=== PATIENT | female | born 1955 | race Caucasian/White ===

== ENCOUNTER 2017-08-30 06:55 | Emergency (ER) | payer OTHER ==
[2017-08-30] MEDS ORDERED: Sodium Chloride 0.9% 1,000 ML IV ONE (07:15)
[2017-08-30] MEDS ORDERED: Sodium Chloride 0.9% 10 ML Syringe FLUSH PRN (07:15)
--- NOTE | 2017-08-30 07:51 | CR ---
Chest: Portable view of the chest was obtained. Comparison: No prior chest x-ray. Heart size and mediastinum are normal. Lungs are clear. Bony structures are grossly intact. Slight scoliosis is incidentally noted. Impression: 1. Nothing acute is seen. Diagnostic code #2
--- NOTE | 2017-08-30 07:58 | EDM.PDOC ---
ED HPI GENERAL MEDICAL PROBLEM - General Chief Complaint: Syncope Stated Complaint: [facility] Time Seen by Provider: 08/30/17 07:14 Source of Information: Reports: Patient History Limitations: Reports: No Limitations - History of Present Illness INITIAL COMMENTS - FREE TEXT/NARRATIVE: 62 y/o F with syncope. Was out walking this morning per usual routine. Stopped to play with a neighbor's dog. Was standing near a fence when she suddenly felt very lightheaded/dizzy. Told her she felt lightheaded and needed to leave. He states she then passed out. He helped her to the ground. Thinks she was out for about a minute. Was mildly confused when she came to. Continued to breath during the episode. No shaking/seizure activity. Continued to feel dizzy when she woke up briefly, but feels fine now. EMS blood glucose 140. EMS vital signs normal at the scene. States she's recently had nasal congestion/URI for 3- 4 days. No fever. No vomiting/diarrhea. No chest pain/SOB. No abdominal pain. No lower extremity pain/swelling. Doesn't take systemic estrogens. No recent immobilization/travel. No family hx of PE/DVT. States a cousin recently had a valve replacement and was told it could be a familial problem, unsure of additional details. She does have a history of prior passing out episodes, including once about 2 years ago when she was sick with flu, and another episode prior to that, and additional episodes when she was much younger. Had what sounds like a holter monitor at one point which was normal. - Related Data Allergies Allergy/AdvReac Type Severity Reaction Status Date / Time No Known Drug Allergies Allergy Other Verified 08/30/17 07:58 Home Meds: Home Meds Aspirin 81 mg PO DAILY 08/30/17 [History] Calcium Carbonate/Vitamin D3 [Calcium 600-Vit D3 800 Tablet] 1 each PO BID 08/30 [History] Docusate Sodium [Stool Softener] 100 mg PO BID 08/30/17 [History] Flaxseed Oil [Flaxseed] 1,000 mg PO DAILY 08/30/17 [History] Levothyroxine 25 mcg PO DAILY 08/30/17 [History] Multivitamin [Multivitamins] 1 each PO DAILY 08/30/17 [History] Niacin 100 mg PO DAILY 08/30/17 [History] Stanley-3/DHA/Epa/Fish Oil [Fish Oil 1,000 mg Softgel] 1 each PO TID 08/30/17 [ History] Social & Family History - Tobacco Use Smoking Status *Q: Never Smoker Second Hand Smoke Exposure: Yes - Caffeine Use Caffeine Use: Reports: None - Recreational Drug Use Recreational Drug Use: No ED ROS GENERAL - Review of Systems Review Of Systems: See Below Constitutional: Denies: Fever HEENT: Reports: Sinus Problem Respiratory: Denies: Shortness of Breath Cardiovascular: Denies: Chest Pain Endocrine: Reports: No Symptoms GI/Abdominal: Denies: Abdominal Pain : Reports: No Symptoms Musculoskeletal: Reports: No Symptoms Skin: Reports: No Symptoms Neurological: Reports: Dizziness Psychiatric: Reports: No Symptoms Hematologic/Lymphatic: Reports: No Symptoms Immunologic: Reports: No Symptoms - Physical Exam Exam: See Below Exam Limited By: No Limitations General Appearance: Alert, WD/WN, No Apparent Distress Eye Exam: Bilateral Eye: Normal Inspection, PERRL Ears: Normal External Exam Nose: Normal Inspection Throat/Mouth: Normal Inspection, Normal Oropharynx, Normal Voice, No Airway Compromise Head Exam: Atraumatic, Normocephalic Neck: Normal Inspection, Supple, Non-Tender, Full Range of Motion Respiratory/Chest: No Respiratory Distress, Lungs Clear, Normal Breath Sounds, No Accessory Muscle Use, Chest Non-Tender Cardiovascular: Normal Peripheral Pulses, Regular Rate, Rhythm, No Edema, No Murmur GI/Abdominal: Soft, Non-Tender, No Distention. No: Rebound Neuro Exam (Abbreviated): Alert, Oriented, CN II-XII Intact, Normal Cognition, No Motor/Sensory Deficits Back Exam: Normal Inspection Extremities: Normal Inspection, No Pedal Edema. No: Leg Pain Psychiatric: Normal Affect, Normal Mood Skin Exam: Warm, Dry, Intact, Normal Color, No Rash Course - Vital Signs Last Recorded V/S: Last Vital Signs Temp 36.4 C 08/30/17 07:02 Pulse 76 08/30/17 07:02 Resp 20 08/30/17 07:02 BP 117/73 08/30/17 07:02 Pulse Ox 100 08/30/17 07:02 Orthostatic Blood Pressure [ 100/53 Standing] Orthostatic Blood Pressure [ 101/52 Sitting] Orthostatic Blood Pressure [ 100/64 Supine] - Orders/Labs/Meds Orders: Active Orders 24 hr Category Date Time Status EKG 12 Lead [EKG Documentation Completion] [] STAT Care 08/30/17 07:14 Active EKG 12 Lead [EKG Documentation Completion] [] STAT Care 08/30/17 09:14 Active Peripheral IV Care [RC] . DIRECTED Care 08/30/17 07:15 Active Peripheral IV Care [RC] . DIRECTED Care 08/30/17 07:15 Active UA W/MICROSCOPIC [URIN] Stat Lab 08/30/17 09:10 Ordered Peripheral IV Insertion Adult [OM.PC] Routine Oth 08/30/17 07:15 Ordered Labs: Laboratory Tests 08/30/17 08/30/17 08/30/17 Range/Units 08:15 08:15 09:10 WBC 9.33 (3.98-10.04) K/mm3 RBC 4.38 (3.98-5.22) M/mm3 Hgb 14.0 (11.2-15.7) gm/L Hct 40.3 (34.1-44.9) % MCV 92.0 (79.4-94.8) fl MCH 32.0 (25.6-32.2) pg MCHC 34.7 (32.2-35.5) g/dl RDW Std Deviation 41.4 (36.4-46.3) fL Plt Count 242 (182-369) K/mm3 MPV 9.7 (9.4-12.3) fl Neut % (Auto) 76.1 H (34.0-71.1) % Lymph % (Auto) 13.1 L (19.3-51.7) % Stokes % (Auto) 10.1 (4.7-12.5) % Eos % (Auto) 0.2 L (0.7-5.8) Baso % (Auto) 0.4 (0.1-1.2) % Neut # (Auto) 7.10 H (1.56-6.13) K/mm3 Lymph # (Auto) 1.22 (1.18-3.74) K/mm3 Stokes # (Auto) 0.94 H (0.24-0.36) K/mm3 Eos # (Auto) 0.02 L (0.04-0.36) K/mm3 Baso # (Auto) 0.04 (0.01-0.08) K/mm3 Sodium 137 (136-145) mEq/L Potassium 4.1 (3.5-5.1) mEq/L Chloride 103 (98-107) mEq/L Carbon Dioxide 27 (21-32) mEq/L Anion Gap 11.1 (5-15) BUN 12 (7-18) mg/dL Creatinine 0.8 (0.55-1.02) mg/dL Est Cr Clr Drug Dosing 59.54 mL/min Estimated GFR (MDRD) > 60 (>60) mL/min BUN/Creatinine Ratio 15.0 (14-18) Glucose 106 (80-115) mg/dL Calcium 8.6 (8.5-10.1) mg/dL Magnesium 1.9 (1.8-2.4) mg/dl Total Bilirubin 0.7 (0.2-1.0) mg/dL AST 23 (15-37) U/L ALT 34 (14-59) U/L Alkaline Phosphatase 73 (46-116) U/L Troponin I < 0.017 (0.00-0.056) ng/mL Total Protein 7.0 (6.4-8.2) g/dl Albumin 3.5 (3.4-5.0) g/dl Globulin 3.5 gm/dL Albumin/Globulin Ratio 1.0 (1-2) Urine Color Yellow (Yellow) Urine Appearance Clear (Clear) Urine pH 8.5 H (5.0-8.0) Ur Specific [place] 1.020 (1.005-1.030) Urine Protein Negative (Negative) Urine Glucose (UA) Negative (Negative) Urine Ketones 1+ H (Negative) Urine Occult Blood Negative (Negative) Urine Nitrite Negative (Negative) Urine Bilirubin Negative (Negative) Urine Urobilinogen 0.2 (0.2-1.0) Ur Leukocyte Esterase 1+ H (Negative) Urine RBC 0-5 (0-5) /hpf Urine WBC 0-5 (0-5) /hpf Ur Epithelial Cells 0-5 (0-5) /hpf Urine Bacteria Few (FEW) /hpf Urine Mucus Few (FEW) /hpf Meds: Medications Discontinued Medications Generic Name Dose Route Start Last Admin Trade Name Freq PRN Reason Stop Dose Admin Sodium Chloride 1,000 mls @ 1,000 mls/hr 08/30/17 07:15 08/30/17 07:58 Normal Saline IV 08/30/17 08:14 1,000 mls/hr ONETIME ONE Administration Sodium Chloride 10 ml 08/30/17 07:15 08/30/17 07:58 Saline Flush FLUSH 10 ml ASDIRECTED PRN Administration Keep Vein Open - Re-Assessments/Exams Free Text/Narrative Re-Assessment/Exam: 08/30/17 08:24 CXR shows no acute abnormality. EKG shows NSR vs. ectopic atrial rhythm - P waves are inverted in leads II/III/aVL, V3/4/5/6. Rate is normal at 77. Normal intervals. Normal ST segments. No significant T wave inversions. 08/30/17 16:11 Repeat EKG showed nSR with normal intervals. No evidence of ischemia. Labs including CBC, electrolytes, LFT's, creatinine, UA all normal. Trop neg. Observed in the ED for a couple of hours with no evidence of arrhythmia. Discussed finding of ectopic atrial rhythm at time of presentation. Encouraged her to f/u with PCP for further care. Discussed return precautions. Departure - Departure Time of Disposition: 09:34 Disposition: Home, Self-Care 01 Clinical Impression: Syncope and collapse - Discharge Information Instructions: Syncope, [id number] Referrals: Ro Ortega MD [Primary Care Provider] - Forms: ED Department Discharge Additional Instructions: 1. Follow up with Dr. Ortega when able, ideally in the next 1-2 weeks for further care. 2. Return to the ED if you have a new episode of passing out. 3. Your blood work and chest x-ray are normal, including complete blood count, chemistry, troponin, liver function tests, renal function tests 4. Your initial EKG showed Ectopic Atrial Rhythm with a normal rate (rate 77). There was no other abnormality. Your repeat EKG showed Normal Sinus Rhythm and was a normal EKG. Follow up with your regular doctor to further discuss. Your doctor may want to refer you for an echocardiogram. - My Orders Last 24 Hours: My Active Orders 08/30/17 07:14 EKG 12 Lead [EKG Documentation Completion] [RC] STAT 08/30/17 07:15 Peripheral IV Care [RC] . DIRECTED Peripheral IV Care [RC] . DIRECTED Peripheral IV Insertion Adult [OM.PC] Routine 08/30/17 09:10 UA W/MICROSCOPIC [URIN] Stat 08/30/17 09:14 EKG 12 Lead [EKG Documentation Completion] [RC] STAT - Assessment/Plan Last 24 Hours: My Active Orders 08/30/17 07:14 EKG 12 Lead [EKG Documentation Completion] [RC] STAT 08/30/17 07:15 Peripheral IV Care [RC] . DIRECTED Peripheral IV Care [RC] . DIRECTED Peripheral IV Insertion Adult [OM.PC] Routine 08/30/17 09:10 UA W/MICROSCOPIC [URIN] Stat 08/30/17 09:14 EKG 12 Lead [EKG Documentation Completion] [RC] STAT
== END 2017-08-30 09:50 | disposition home or self-care (01) ==
LOC: JD.ED 06:55
DX: R55 Syncope and collapse (principal); Z79.899 Other long term (current) drug therapy; Z79.82 Long term (current) use of aspirin
CPT/HCPCS: 36415; 71045; 80053; 81001; 83735; 84484; 85025; 93005; 96360; 99285; J7040; J7050; 93010; 99284